=== PATIENT | female | born 1950 | race Caucasian/White ===

== ENCOUNTER → 2016-06-18 | Outpatient (CLI) | payer MEDICARE | LOC: KOH-I 10:57 | DX: R05 Cough (principal); R91.8 Other nonspecific abnormal finding of lung field | CPT/HCPCS: 71020 ==

== ENCOUNTER → 2020-04-17 | Outpatient (CLI) | payer MEDICARE ==
[~2020-04-17] MED LIST: BACTRIM DS TAB1 EACH PO; KEFLEX CAP 500500 MG PO; VIBRAMYCIN 100100 MG PO
== END ==
LOC: EXRD 03-09 09:00 → KOH-I 08:30
DX: R74.8 Abnormal levels of other serum enzymes (principal); R16.0 Hepatomegaly, not elsewhere classified; K76.0 Fatty (change of) liver, not elsewhere classified
CPT/HCPCS: 76705

== ENCOUNTER → 2021-02-21 | Outpatient (CLI) | payer MEDICARE ==
[2021-02-21 13:47] LABS: HEMOGLOBIN 15.7 gm/dl (12.3-15.3); RED BLOOD COUNT 4.89 M/UL (4.00-5.10); WHITE BLOOD COUNT 9.4 K/UL (4.5-11.0)
[2021-02-21 14:09] LABS: BUN/CREATININE RATIO 21 (0-10)
[2021-02-22 11:14] LABS: RHEUMATOID ARTHRITIS FACTOR <10.0 IU/mL (0.0-13.9)
== END ==
LOC: LAB 13:08
PROVIDERS: Nurse Practitioner Family
DX: M25.50 Pain in unspecified joint (principal); D89.9 Disorder involving the immune mechanism, unspecified; R76.8 Other specified abnormal immunological findings in serum; M79.10 Myalgia, unspecified site; M79.643 Pain in unspecified hand; R93.6 Abnormal findings on diagnostic imaging of limbs
CPT/HCPCS: 36415; 73130; 80053; 82550; 83520; 84439; 84443; 85025; 85652; 86140; 86200; 86431

== ENCOUNTER 2021-04-12 13:44 | Emergency (ER) | payer MEDICARE | END 2021-04-12 15:10 | disposition home or self-care (01) | LOC: ER1 13:44 | DX: J06.9 Acute upper respiratory infection, unspecified (principal); Z90.710 Acquired absence of both cervix and uterus; Z20.822 Contact with and (suspected) exposure to COVID-19 | CPT/HCPCS: 71045; 99283; U0002 ==

== ENCOUNTER 2021-08-04 12:01 | Emergency (ER) | payer MEDICARE | END 2021-08-04 13:11 | disposition home or self-care (01) | LOC: ER1 12:01 | DX: S91.311A Laceration without foreign body, right foot, initial encounter (principal); X58.XXXA Exposure to other specified factors, initial encounter | CPT/HCPCS: 99283 ==